=== PATIENT | female | born 1935 | race Caucasian/White ===

== ENCOUNTER → 2016-10-26 | Day surgery (SDC) | payer MEDICARE, OTHER ==
[~2016-10-26] VITALS: Ht 157.5 cm; Wt 77.1 kg
[~2016-10-26] MED LIST: /BENA20TA PO; /CLON2TA PO; /ESCI10TA PO; /ESCI20TA; /METO2TASA PO; /MOM400 PO; ALBU17IN INH; ALDA25TA2 PO; ALPH0.1S OU; AMLO5TAB PO; AMLO5TAB2 PO; ARTIDRO OU; ATOR1TAB21 PO; AZOR; BISAC5TA PO; CALCIUM WITH VIT D PO; CALCTAB22 PO; CEFT500T PO; CELE40TA PO; CENT1TAB PO; CIPRODEX OTIC SUSP 7.5ML As Ordered ONE; CITA40TA4 PO; COLA50CA3 PO; COZA100T2 PO; DULC10SU9 PR; DUONSOL; DUONSOL IN; FLON0.05; IPRA2IN INH; IPRASOL4 INH; LASI40TA PO; LATA0.002 OD; LESC80TA; LEVA31IN INH; LEVO100T PO; LEVO100T5 PO; LEVOXYL25 MCG; LIDOCAINE 2% INJ 100 MG/5 ML SDV (FOR ANES.) As Ordered ONE; LORTTAB5 PO; LR 1,000 ML IV SCH; METO-207 PO; METO200T3 PO; MIDAZOLAM INJ 2 MG/2 ML VIAL (J2250) As Ordered ONE; MULTIVIT PO; OCEAN NASAL SPRAY; ONDANSETRON 4MG/2ML VIAL (J2405) As Ordered ONE; ONDANSETRON 4MG/2ML VIAL (J2405) IV PRN; POTA10CA2; PRED10TA PO; PRED10TA2 PO; PRED5TA PO; PROPOFOL 200 MG/20 ML VIAL As Ordered ONE; SIMV40TA2 PO; SPIR25TA2 PO; SYMB80INH INH; TEKTURNA PO; TOPR100T; TYLE325T5 PO; ZITH500T; fentaNYL 100 MCG/2 ML INJECTION (J3010) As Ordered ONE; fentaNYL 100 MCG/2 ML INJECTION (J3010) IV PRN
[2016-10-26 17:00] VITALS: BP 150/68
== END | disposition home or self-care (01) ==
LOC: M SDC 11:38
PROVIDERS: ATTEND Otolaryngology
DX: H65.23 Chronic serous otitis media, bilateral (principal); H90.6 Mixed conductive and sensorineural hearing loss, bilateral; I10 Essential (primary) hypertension; G47.30 Sleep apnea, unspecified; Z79.899 Other long term (current) drug therapy; E78.5 Hyperlipidemia, unspecified; E03.9 Hypothyroidism, unspecified; K21.9 Gastro-esophageal reflux disease without esophagitis; F41.9 Anxiety disorder, unspecified; J44.9 Chronic obstructive pulmonary disease, unspecified; C85.80 Other specified types of non-Hodgkin lymphoma, unspecified site; Z92.21 Personal history of antineoplastic chemotherapy; Z87.891 Personal history of nicotine dependence
CPT/HCPCS: 69436; J2250; J2405; J3010

== ENCOUNTER → 2016-12-27 | Outpatient (CLI) | payer MEDICARE, OTHER ==
[~2016-12-27] MED LIST changes: -CIPRODEX OTIC SUSP 7.5ML As Ordered ONE; -LIDOCAINE 2% INJ 100 MG/5 ML SDV (FOR ANES.) As Ordered ONE; -LR 1,000 ML IV SCH; -MIDAZOLAM INJ 2 MG/2 ML VIAL (J2250) As Ordered ONE; -ONDANSETRON 4MG/2ML VIAL (J2405) As Ordered ONE; -ONDANSETRON 4MG/2ML VIAL (J2405) IV PRN; -PROPOFOL 200 MG/20 ML VIAL As Ordered ONE; -fentaNYL 100 MCG/2 ML INJECTION (J3010) As Ordered ONE; -fentaNYL 100 MCG/2 ML INJECTION (J3010) IV PRN
--- NOTE | 2016-12-27 19:21 | REP ---
PET/CT: History: Restaging follicular lymphoma. Comparisons: Most recent comparison PET-CT study is from 12/30/2015. Prior PET-CT from 03/25/2016 and 08/06/2014 are also reviewed. Recent chest CT, neck CT, and abdomen CT from 07/05/2016. TECHNIQUE: 65 minutes following the intravenous injection of a 8.0 mCi dose of F-18 FDG, three-dimensional PET scintigraphy is acquired from the skull base to the proximal thighs. Triplanar noncontrast CT scanning is acquired through the same anatomic range for attenuation correction, and image registration with scan parameters optimized to minimize radiation exposure to the patient. PET scintigraphy and CT datasets were fused and displayed on a workstation with multiplanar and projection display capability. PET/CT Findings: There is low level predominantly peripheral pattern of mucosal mildly hypermetabolic uptake in the largely opacified left maxillary sinus consistent with inflammatory paranasal sinus changes. Maximum standard uptake value here is 7.1. Previously this was 6.5. This is not felt to be a significant change. The head and neck soft tissues are otherwise unremarkable today. No abnormal hypermetabolic uptake is seen in the thorax. In the abdomen and pelvis, there is normal distribution of FDG tracer to the liver, spleen, gastrointestinal and genitourinary systems. Previously noted right iliac fossa FDG accumulation is no longer seen. There is a mild thickening and mildly hypermetabolic uptake in the rebekah of the diaphragm on the right side in the upper abdomen. No localized mass lesion is seen. Maximum standard uptake value here is 4.4 and is not felt to be a significant change. This is most likely normal variant. No new abnormal hypermetabolic uptake is seen in the retroperitoneum elsewhere or in the pelvis or inguinal region. Some skeletal muscle uptake is seen in the proximal thighs. Impression: No new area of hypermetabolic uptake. The previously noted right iliac fossa uptake is no longer apparent. There is some mildly hypermetabolic uptake in or along the rebekah of the right diaphragm most likely normal variant. Signed by Kirill Juares MD 12/27/2016 08:02 P
== END ==
LOC: M RAD 10:20
PROVIDERS: ATTEND Internal Medicine Hematology & Oncology
DX: C82.90 Follicular lymphoma, unspecified, unspecified site (principal)
CPT/HCPCS: 78815; A9552

== ENCOUNTER → 2018-07-17 | Outpatient (CLI) | payer MEDICARE, OTHER | LOC: M SMT 09:22 | DX: J44.9 Chronic obstructive pulmonary disease, unspecified (principal); R91.8 Other nonspecific abnormal finding of lung field; J96.11 Chronic respiratory failure with hypoxia | CPT/HCPCS: 71046 ==